=== PATIENT | female | born 1995 | race Caucasian/White ===

== ENCOUNTER 2024-12-21 16:19 | Day surgery (SDC) | payer BC ==
[2024-12-21 16:45] VITALS: BMI 34.5
[2024-12-21 17:48] LABS: Fetal Membranes Rupture No Membranes Rupture (No Rupture)
[2024-12-21] MEDS ORDERED: hydrALAZINE 20 MG/ML VIAL SLOW IVP PRN (18:15)
== END 2024-12-21 19:36 | disposition home or self-care (01) ==
LOC: CSHLD/OP 16:19
PROVIDERS: ATTEND Obstetrics & Gynecology
DX: O23.593 Infection of other part of genital tract in pregnancy, third trimester (principal); B96.89 Other specified bacterial agents as the cause of diseases classified elsewhere; O47.03 False labor before 37 completed weeks of gestation, third trimester; Z3A.36 36 weeks gestation of pregnancy; Z88.0 Allergy status to penicillin
CPT/HCPCS: 84112; 87480; 87510; 87660; 99285

== ENCOUNTER 2025-01-10 21:03 | Inpatient (IN) | payer BC ==
[2024-12-28 21:36] VITALS: BMI 34.5
[2025-01-10] MEDS ORDERED: Lidocaine 1% (PF) 30 ML VIAL SC PRN (22:34)
[2025-01-10] MEDS ORDERED: Ondansetron PF 4 MG/2 ML Vial IVP PRN (22:34)
[2025-01-10] MEDS ORDERED: HYDROcodone/Acetaminophen 5/325 mg Tablet PO PRN ×2 (22:34)
[2025-01-10] MEDS ORDERED: Oxytocin 30 units/NS 500 ML 500 ML IV SCH ×2 (22:34)
[2025-01-10] MEDS ORDERED: hydrALAZINE 20 MG/ML VIAL SLOW IVP PRN (22:34)
[2025-01-10] MEDS ORDERED: Ibuprofen 800 MG TAB PO PRN (22:34)
[2025-01-10 22:41] LABS: Hematocrit 36.9 % (34.9-44.5); Hemoglobin 12.7 g/dL (12.0-15.5); Mean Corpuscular Hemoglobin 31.1 pg (27.0-33.0); Mean Corpuscular Volume 90.2 fL (81.6-98.3); Platelet Count 249 10x3/uL (150-450); Red Blood Cell (RBC) Count 4.09 10x6/uL (3.90-5.03); White Blood Cell (WBC) Count 10.28 10x3/uL (3.5-10.5)
[2025-01-10 23:12] LABS: Syphilis Antibody Index 0.07 S/CO (<1.00 Non-Reactive)
[2025-01-10 23:14] LABS: Hep B Surf Ag - L&D Non-Reactive S/CO (NonReactive)
[2025-01-11] MEDS ORDERED: Bicitra 30 ML UDCUP PO PRN (12:37)
[2025-01-11] MEDS ORDERED: Famotidine/PF 20 mg/2ml Vial SLOW IVP PRN (12:37)
[2025-01-11] MEDS ORDERED: Ondansetron PF 4 MG/2 ML Vial IVP PRN (15:54)
[2025-01-11] MEDS ORDERED: diphenhydrAMINE 25 MG CAP PO PRN (15:54)
[2025-01-11] MEDS ORDERED: Bisacodyl 10 MG SUPP PR PRN (15:54)
[2025-01-11] MEDS ORDERED: hydrALAZINE 20 MG/ML VIAL SLOW IVP PRN (15:54)
[2025-01-11] MEDS ORDERED: Lanolin Ointment 7 GM TUBE TOP PRN (15:54)
[2025-01-11] MEDS ORDERED: Simethicone Chewable 80 MG TAB PO PRN (15:54)
[2025-01-11] MEDS: CEFAZOLIN 2 GM VIAL ONE (17:25)
[2025-01-11] MEDS: Hepatitis B Vaccine 10 MCG/0.5 ML SYR ONE (17:25)
[2025-01-11] MEDS: PHENYLEPHRINE-NS 100 MCG/ML 10 ML SYRINGE ONE (17:25)
[2025-01-11] MEDS: Famotidine/PF 20 mg/2ml Vial ONE (17:25)
[2025-01-11] MEDS: Erythromycin Base 0.5% Oint 1 GM TUBE ONE (17:25)
[2025-01-11] MEDS: Oxytocin 10 UNITS/ML VIAL ONE (17:25)
[2025-01-11] MEDS: Ibuprofen 800 MG TAB PO SCH (17:26)
[2025-01-11] MEDS: Ketorolac Tromethamine 30 MG (1 mL) VIAL IVP SCH (18:08)
[2025-01-11] MEDS: Ferrous Sulfate 325 MG TAB PO SCH (21:34)
[2025-01-12] MEDS: Ketorolac Tromethamine 30 MG (1 mL) VIAL IVP SCH (01:00)
[2025-01-12 06:20] LABS: Hematocrit 31.6 % (34.9-44.5); Hemoglobin 10.9 g/dL (12.0-15.5); Mean Corpuscular Hemoglobin 31.3 pg (27.0-33.0); Mean Corpuscular Volume 90.8 fL (81.6-98.3); Platelet Count 182 10x3/uL (150-450); Red Blood Cell (RBC) Count 3.48 10x6/uL (3.90-5.03); White Blood Cell (WBC) Count 12.19 10x3/uL (3.5-10.5)
[2025-01-12] MEDS: HYDROcodone/Acetaminophen 5/325 mg Tablet PO PRN (20:56)
[2025-01-13] MEDS: Ibuprofen 800 MG TAB PO PRN (05:39)
[2025-01-13 08:00] VITALS: BP 118/59; TEMP 97.8
[2025-01-13] MEDS: HYDROcodone/Acetaminophen 5/325 mg Tablet PO PRN (08:24)
[2025-01-13] MEDS: Measles/Mumps/Rubella 10 MCG/0.5 ML VIAL SC ONE (10:59)
== END 2025-01-13 12:05 | disposition home or self-care (01) | DRG 787 ==
LOC: CSHLD 21:03 → CSHPED 01-11 15:40
PROVIDERS: ADMIT Obstetrics & Gynecology; ATTEND Obstetrics & Gynecology
DX: O76 Abnormality in fetal heart rate and rhythm complicating labor and delivery (principal); D62 Acute posthemorrhagic anemia; Z37.0 Single live birth; Z3A.39 39 weeks gestation of pregnancy; O77.0 Labor and delivery complicated by meconium in amniotic fluid; Z88.0 Allergy status to penicillin; O99.02 Anemia complicating childbirth
CPT/HCPCS: 36415; 51702; 85027; 86780; 86850; 86900; 86901; 87340; 90707; J1308; J1885; J2274; J2590